=== PATIENT | female | born 1940 | race Caucasian/White ===

== ENCOUNTER 2020-07-18 17:28 | Inpatient (IN) | payer MEDICARE ==
--- NOTE | 2020-07-18 18:36 | ED ---
General Adult HPI - General Chief complaint: Weakness Stated complaint: high white blood count/Family wanted her eval Time Seen by Provider: 07/18/20 18:09 Source: patient Mode of arrival: wheelchair Limitations: no limitations - History of Present Illness Initial comments: Dictation was produced using Wote dictation software. please excuse any grammatical, word or spelling errors. This patient was cared for during a federal and state declared state of emergency secondary to Covid 19 Chief Complaint: 79-year-old female sent in from primary care physician's office for weakness. History of Present Illness: 79-year-old female she was seen at primary care physician's office for weakness. Patient's been weak for the last 3-4 days. 3 days ago she fell and suffered some bruising around her neck. She states that after the fall she did not have any headache. She has no neck pain or headache at this time. She did suffer some bruising around the left anterior neck. She's been weak and hasn't been able to get up out of bed to do her daily activities. They will to the primary care physician's office where blood tests was performed she did have a white count. They sent her here because patient was unable to provide a urine sample. Patient denies any numbness and paresthesias to the arms or legs. 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 she denies any worsening weakness of the left side. Patient takes Xarelto The ROS documented in this emergency department record has been reviewed and confirmed by me. Those systems with pertinent positive or negative responses have been documented in the HPI. All other systems are other negative and/or noncontributory. PHYSICAL EXAM: General Impression: Alert and oriented x3, not in acute distress HEENT: Normocephalic, ecchymoses and bruising to the left anterior neck, extra- ocular movements intact, pupils equal and reactive to light bilaterally, mucous membranes moist. Cardiovascular: Heart regular rate and rhythm Chest: Able to complete full sentences, no retractions, no tachypnea Abdomen: abdomen soft, non-tender, non-distended, no organomegaly Musculoskeletal: Pulses present and equal in all extremities, no peripheral edema Motor: no focal deficits noted Neurological: CN II-XII grossly intact, action to the left upper extremity, mild weakness and ataxia to the left lower extremity Skin: Intact with no visualized rashes Psych: Normal affect and mood ED course: 79 yo past medical history of left-sided weakness from a stroke suffered several years ago presents today with generalized weakness. She has no neurologic complaints. Vital signs upon arrival are within acceptable limits. Laboratory evaluation obtained. Leukocytosis 16.60 shows a 14.3. Rest CBC unremarkable. Metabolic panel shows creatinine of 2.69. There is no old labs for comparison. Patient given intravenous fluids. There is concern for acute kidney injury in the setting of likely dehydration. UA shows greater than 182 white blood cells per recurrent versus is negative. Computed tomography scan of the head and C-spine and chest was obtained to rule out any acute traumatic injuries. Computed tomography scan had C-spine shows no acute processes. C omputed tomography scan of the chest was obtained showing incidental findings of pulmonary nodules and adrenal nodule. Disposition0 discussed patient and her at bedside. Patient agreeable for admission. Case was discussed with Mariana Piper was went except patient's Behalf of [facility] prescription. - Related Data Allergies Allergy/AdvReac Type Severity Reaction Status Date / Time No Known Allergies Allergy Verified 07/18/20 18:07 Review of Systems ROS Statement: Those systems with pertinent positive or pertinent negative responses have been documented in the HPI. ROS Other: All systems not noted in ROS Statement are negative. Past Medical History Past Medical History: Atrial Fibrillation, CVA/TIA History of Any Multi-Drug Resistant Organisms: None Reported Past Surgical History: Hysterectomy Past Psychological History: No Psychological Hx Reported Smoking Status: Never smoker Past Alcohol Use History: None Reported Past Drug Use History: None Reported General Exam Limitations: no limitations Course Vital Signs 07/18/20 07/18/20 18:01 19:49 Temperature 98.2 F Pulse Rate 64 103 H Respiratory 16 18 Rate Blood Pressure 112/73 103/85 O2 Sat by Pulse 97 97 Oximetry Medical Decision Making - Lab Data Result diagrams: 07/18/20 19:22 07/18/20 19:38 Lab Results 07/18/20 07/18/20 07/18/20 Range/Units 19:22 19:22 19:22 WBC 16.6 H (3.8-10.6) k/uL RBC 4.14 (3.80-5.40) m/uL Hgb 12.1 (11.4-16.0) gm/dL Hct 36.3 (34.0-46.0) % MCV 87.6 (80.0-100.0) fL MCH 29.3 (25.0-35.0) pg MCHC 33.4 (31.0-37.0) g/dL RDW 13.8 (11.5-15.5) % Plt Count 209 (150-450) k/uL MPV 8.0 Neutrophils % 86 % Lymphocytes % 9 % Monocytes % 3 % Eosinophils % 0 % Basophils % 0 % Neutrophils # 14.3 H (1.3-7.7) k/uL Lymphocytes # 1.5 (1.0-4.8) k/uL Monocytes # 0.5 (0-1.0) k/uL Eosinophils # 0.0 (0-0.7) k/uL Basophils # 0.0 (0-0.2) k/uL Sodium (137-145) mmol/L Potassium (3.5-5.1) mmol/L Chloride (98-107) mmol/L Carbon Dioxide (22-30) mmol/L Anion Gap mmol/L BUN (7-17) mg/dL Creatinine (0.52-1.04) mg/dL Est GFR (CKD-EPI)AfAm (>60 ml/min/1.73 sqM) Est GFR (CKD-EPI)NonAf (>60 ml/min/1.73 sqM) Glucose (74-99) mg/dL Calcium (8.4-10.2) mg/dL Magnesium (1.6-2.3) mg/dL Urine Color Yellow Urine Appearance Turbid H (Clear) Urine pH 5.5 (5.0-8.0) Ur Specific [place] 1.017 (1.001-1.035) Urine Protein 2+ H (Negative) Urine Glucose (UA) Negative (Negative) Urine Ketones Negative (Negative) Urine Blood Small H (Negative) Urine Nitrite Negative (Negative) Urine Bilirubin Negative (Negative) Urine Urobilinogen <2.0 (<2.0) mg/dL Ur Leukocyte Esterase Large H (Negative) Urine RBC 9 H (0-5) /hpf Urine WBC >182 H (0-5) /hpf Urine WBC Clumps Many H (None) /hpf Ur Squamous Epith Cells 4 (0-4) /hpf Urine Bacteria Occasional H (None) /hpf Hyaline Casts 11 H (0-2) /lpf Urine Mucus Rare H (None) /hpf Coronavirus (PCR) Not Detected (Not Detectd) 07/18/20 Range/Units 19:38 WBC (3.8-10.6) k/uL RBC (3.80-5.40) m/uL Hgb (11.4-16.0) gm/dL Hct (34.0-46.0) % MCV (80.0-100.0) fL MCH (25.0-35.0) pg MCHC (31.0-37.0) g/dL RDW (11.5-15.5) % Plt Count (150-450) k/uL MPV Neutrophils % % Lymphocytes % % Monocytes % % Eosinophils % % Basophils % % Neutrophils # (1.3-7.7) k/uL Lymphocytes # (1.0-4.8) k/uL Monocytes # (0-1.0) k/uL Eosinophils # (0-0.7) k/uL Basophils # (0-0.2) k/uL Sodium 138 (137-145) mmol/L Potassium 3.5 (3.5-5.1) mmol/L Chloride 104 (98-107) mmol/L Carbon Dioxide 23 (22-30) mmol/L Anion Gap 11 mmol/L BUN 56 H (7-17) mg/dL Creatinine 2.69 H (0.52-1.04) mg/dL Est GFR (CKD-EPI)AfAm 19 (>60 ml/min/1.73 sqM) Est GFR (CKD-EPI)NonAf 16 (>60 ml/min/1.73 sqM) Glucose 150 H (74-99) mg/dL Calcium 9.0 (8.4-10.2) mg/dL Magnesium 2.1 (1.6-2.3) mg/dL Urine Color Urine Appearance (Clear) Urine pH (5.0-8.0) Ur Specific [place] (1.001-1.035) Urine Protein (Negative) Urine Glucose (UA) (Negative) Urine Ketones (Negative) Urine Blood (Negative) Urine Nitrite (Negative) Urine Bilirubin (Negative) Urine Urobilinogen (<2.0) mg/dL Ur Leukocyte Esterase (Negative) Urine RBC (0-5) /hpf Urine WBC (0-5) /hpf Urine WBC Clumps (None) /hpf Ur Squamous Epith Cells (0-4) /hpf Urine Bacteria (None) /hpf Hyaline Casts (0-2) /lpf Urine Mucus (None) /hpf Coronavirus (PCR) (Not Detectd) Disposition Clinical Impression: UTI (urinary tract infection), KRISTOPHER (acute kidney injury), Dehydration Disposition: ADMITTED IP TO THIS HOSP Condition: Fair Referrals: Vernon Negron MD [Primary Care Provider] - 1-2 days Decision Time: 21:06
[2020-07-18 19:57] LABS: Basophils % (A) 0 %; Eosinophils % (A) 0 %; HCT 36.3 % (34.0-46.0); HGB 12.1 gm/dL (11.4-16.0); Lymphocytes # (A) 1.5 k/uL (1.0-4.8); Lymphocytes % (A) 9 %; MCH 29.3 pg (25.0-35.0); MCHC 33.4 g/dL (31.0-37.0); MCV 87.6 fL (80.0-100.0); Monocytes # (A) 0.5 k/uL (0-1.0); Monocytes % (A) 3 %; Neutrophils # (A) 14.3 k/uL (1.3-7.7); Neutrophils % (A) 86 %; Platelet Count 209 k/uL (150-450); RBC 4.14 m/uL (3.80-5.40); RDW 13.8 % (11.5-15.5); WBC 16.6 k/uL (3.8-10.6)
[2020-07-18 19:58] LABS: Appearance,Urine Turbid (Clear); Bacteria,Urine Occasional /hpf; Bilirubin,Urine Negative (Negative); Blood,Urine Small (Negative); Color,Urine Yellow; Glucose,Urine (UA) Negative (Negative); Hyaline Casts,Urine 11 /lpf (0-2); Ketones,Urine Negative (Negative); Leukocyte Esterase,Urine Large (Negative); Mucus,Urine Rare /hpf; Nitrite,Urine Negative (Negative); PH, Urine 5.5 (5.0-8.0); Protein,Urine 2+ (Negative); RBC,Urine 9 /hpf (0-5); Specific Gravity,Urine 1.017 (1.001-1.035); Squamous Epithelial Cell,Urine 4 /hpf (0-4); Urobilinogen,Urine <2.0 mg/dL (<2.0); WBC,Urine >182 /hpf (0-5)
--- NOTE | 2020-07-18 20:24 | CT ---
EXAMINATION TYPE: CT brain marvaine wo con DATE OF EXAM: 07/18/2020 COMPARISON: None available. HISTORY: Fall x2 days ago and weakness. CT DLP: 1434.8 mGycm Automated exposure control for dose reduction was used. TECHNIQUE: CT scan of the head and cervical spine are performed without contrast. FINDINGS: There is no acute intracranial hemorrhage, mass effect, or midline shift identified. Ther e is old right MCA infarct with associated encephalomalacia and exvacuodilatation of the right latera l ventricle. No hydrocephalus. There is moderate white matter disease and parenchymal volume loss. T he globes are intact and the visualized sinuses are clear. Cervical spine is visualized in its entirety from C1 through upper thoracic levels and demonstrates s atisfactory alignment without evidence of acute fracture. There is moderate to severe C4-C7 spondylos is with degenerative minimal anterolisthesis of C4 on C5. Prevertebral soft tissue appears within no rmal limits. The C1-C2 articulation is unremarkable. IMPRESSION: 1. There is no acute fracture or dislocation evident in the cervical spine. 2. No acute intracranial hemorrhage, mass effect, or midline shift is seen. 3. Old right MCA territory infarct. 4. Moderate to severe cervical spondylosis. 5. Chronic microvascular ischemic changes.
[2020-07-18 20:33] LABS: Magnesium 2.1 mg/dL (1.6-2.3); Potassium 3.5 mmol/L (3.5-5.1)
--- NOTE | 2020-07-18 20:33 | CT ---
EXAMINATION TYPE: CT chest wo con DATE OF EXAM: 07/18/2020 COMPARISON: None available. HISTORY: Fall x2 days ago and weakness. CT DLP: 632 mGycm. Automated Exposure Control for Dose Reduction was Utilized. TECHNIQUE: CT scan of the thorax is performed without IV contrast. FINDINGS: LUNGS: There is mild bilateral hazy opacity, most compatible atelectasis. There are scattered few pul monary nodules, most notable in the right middle lobe, measuring up to 4 mm. No pleural effusion or p neumothorax. MEDIASTINUM: Lack of IV contrast is noted to limit evaluation for mediastinal and especially hilar ad enopathy. There are no definitive greater than 1 cm hilar or mediastinal lymph nodes. No cardiomega ly or pericardial effusion is seen. There is moderate to advanced thoracic aorta and coronary atheros clerotic disease. OTHER: There is a 2.7 x 1.6 cm right adrenal nodule. Partially imaged prominent left renal calculus v ersus atherosclerotic calcification. No significant hydronephrosis. No acute osseous abnormality. T12-L1 spondylosis with vacuum disc phenomenon. IMPRESSION: No acute cardiopulmonary abnormality. Nonspecific few right pulmonary nodules, may relate to prior inflammatory/infectious changes. Follow- up CT in 6 months to one year may be obtained in the absence of prior study for comparison. Incidental 2.7 cm right adrenal nodule, may relate to adenoma. Confirmation with dedicated CT protoco l may be obtained as clinically indicated. Partially imaged prominent left renal calculus versus atherosclerotic calcification. No hydronephrosi s.
[2020-07-18] MEDS ORDERED: cefTRIAXone IN SWFI 1,000 MG/10 ML SYRINGE IVP STA (20:37)
[2020-07-18] MEDS ORDERED: NALOXONE 0.4 MG/ML 1 ML VIAL IV PRN (21:01)
[2020-07-18] MEDS ORDERED: ONDANSETRON 4 MG/2 ML VIAL IVP PRN (21:01)
[2020-07-18] MEDS: SODIUM CHLORIDE 0.9% 1,000 ML IV SCH (21:39)
[2020-07-18] MEDS: INSULIN DETEMIR (LEVEMIR) 100 UNIT/ML SYR SQ SCH (22:15)
[2020-07-19 01:40] LABS: Glucose,Whole Blood 155 mg/dL (75-99)
[2020-07-19] MEDS: SODIUM CHLORIDE 0.9% 1,000 ML IV SCH ×2 (06:57→21:10)
[2020-07-19 08:40] LABS: Glucose,Whole Blood 121 mg/dL (75-99)
[2020-07-19] MEDS: INSULIN DETEMIR (LEVEMIR) 100 UNIT/ML SYR SQ SCH ×2 (08:45→21:08)
[2020-07-19 11:31] LABS: Glucose,Whole Blood 138 mg/dL (75-99)
[2020-07-19 11:32] LABS: Basophils % (A) 0 %; Eosinophils # (A) 0.1 k/uL (0-0.7); Eosinophils % (A) 1 %; HCT 33.9 % (34.0-46.0); HGB 11.7 gm/dL (11.4-16.0); Lymphocytes % (A) 9 %; MCH 30.3 pg (25.0-35.0); MCHC 34.6 g/dL (31.0-37.0); MCV 87.7 fL (80.0-100.0); Mean Platelet Volume 7.4; Monocytes # (A) 0.3 k/uL (0-1.0); Monocytes % (A) 3 %; Neutrophils # (A) 9.2 k/uL (1.3-7.7); Neutrophils % (A) 83 %; Platelet Count 202 k/uL (150-450); RBC 3.86 m/uL (3.80-5.40); RDW 13.4 % (11.5-15.5)
[2020-07-19] MEDS: POTASSIUM CHLORIDE ER 10 MEQ TAB.ER.PRT PO SCH (11:57)
[2020-07-19] MEDS: DILTIAZEM CD 240 MG CAP.ER.24H PO SCH (11:58)
[2020-07-19] MEDS: INSULIN ASPART (NovoLOG) 100 UNIT/ML VIAL SQ SCH ×3 (12:21→21:08)
[2020-07-19 17:16] LABS: Glucose,Whole Blood 106 mg/dL (75-99)
[2020-07-19 18:10] LABS: African American GFR (CKD) 21.5 (60.0-200.0); Anion Gap 11.8 mmol/L (4.00-12.00); BUN/Creat Ratio 24.17 Ratio (12.00-20.00); Calcium 8.5 mg/dL (8.7-10.3); Carbon Dioxide 23.2 mmol/L (21.6-31.8); Non-African American GFR(CKD) 18.6 (60.0-200.0)
[2020-07-19 19:50] LABS: Glucose,Whole Blood 210 mg/dL (75-99)
[2020-07-19] MEDS: RIVAROXABAN 15 MG TAB PO SCH (20:43)
[2020-07-19] MEDS: ATORVASTATIN 20 MG TAB PO SCH (20:43)
[2020-07-19] MEDS: SERTRALINE 50 MG TAB PO SCH (20:49)
--- NOTE | 2020-07-19 21:09 | P.HPIM ---
History of Present Illness H&P Date: 07/19/20 Chief Complaint: Generalized weakness Patient is a 79-year-old female with a known history of diabetes type 2 insulin- dependent, history of CVA/TIA with left-sided weakness, atrial fibrillation on anticoagulation with Xarelto presents to ER with complaints of generalized wea kness. Patient was seen at her PCPs office for weakness. Patient has been having generalized weakness for the past 3 to 4 days. 3 days ago she fell and suffered some bruise around her neck. Denied any neck pain or headache at this time. Patient says that she felt due to generalized weakness. No chest pain no dizziness or lightheadedness. Since then patient has not been getting out of bed and do her daily activities as before. Patient was seen by her primary care physician and found to have elevated WBC count and sent to hospital for evaluation of infection. Patient denies any dysuria or hematuria. Denied any fever or chills. No cough or sputum production. No other recent illnesses. CT head and cervical spine showed no acute fracture or dislocation evident in the cervical spine. No acute intracranial hemorrhage mass-effect or midline shift noted. Old right MCA territory infarct. Moderate to severe cervical spondylosis. Chronic microvascular ischemic changes. CT chest showed no acute cardiopulmonary abnormality. Nonspecific diffuse right pulmonary nodules may relate to prior inflammatory or infectious disease changes. Follow-up CT 6 months to 1 year may be obtained in the absence of prior study for comparison. Incidental 2.7 cm right adrenal nodule may relate to adenoma. Confirmation with dedicated CT protocol may be obtained as clinically indicated. Prominent left renal calculus versus atherosclerosis calcification. No hydronephrosis. WBC 16.6, hemoglobin 12.1 and platelets 209 BUN 56, creatinine 2.69 and potassium 3.5 sodium 138 Urinalysis showed turbid with large leukocyte esterase and greater than 182 WBCs COVID-19 PCR not detected. Patient was tachycardic and saturating well on room air. Review of Systems Constitutional: Patient denies any fever or chills . generalized weakness. no weight loss. Abdomen: Patient denied nausea vomiting and diarrhea and abdominal pain. Cardiovascular: Patient denies any chest pain or short of breath no palpitations. Respiratory: patient denied any cough or sputum production. No shortness of breath Neurologic: Patient denied any numbness or tingling headache. Musculoskeletal: Patient denies any complaints of joint swelling or deformity. Skin: Bruising over the neck Psychiatric: Negative Endocrine: No heat or cold intolerance. No recent weight gain. Genitourinary: No dysuria or hematuria. All other 14 point ROS negative except the above Past Medical History Past Medical History: Atrial Fibrillation, CVA/TIA, Diabetes Mellitus History of Any Multi-Drug Resistant Organisms: None Reported Past Surgical History: Hysterectomy Past Anesthesia/Blood Transfusion Reactions: No Reported Reaction Past Psychological History: No Psychological Hx Reported Smoking Status: Never smoker Past Alcohol Use History: None Reported Past Drug Use History: None Reported Medications and Allergies Home Medications Medication Instructions Recorded Confirmed Type Aspirin EC [Ecotrin Low Dose] 81 mg PO DAILY 07/18/20 07/18/20 History Atorvastatin [Lipitor] 20 mg PO DAILY@192907/18/20 07/18/20 History Cholecalciferol [Vitamin D3 (25 5,000 unit PO DAILY 07/18/20 07/18/20 History Mcg = 1000 Iu)] Diltiazem HCl [Cartia Xt] 240 mg PO DAILY 07/18/20 07/18/20 History Dulaglutide [Trulicity] 0.75 mg SQ MO 07/18/20 07/18/20 History Insulin Detemir [Levemir Flextouch] 40 units SQ BID 07/18/20 07/18/20 History Isosorbide Mononitrate ER [Imdur] 30 mg PO DAILY 07/18/20 07/18/20 History Krill/Om-3/Dha/Epa/Phospho/Ast 1 cap PO DAILY 07/18/20 07/18/20 History [Megared Dora-3 Krill 350 mg] Multivitamins, Thera [Multivitamin 1 tab PO DAILY 07/18/20 07/18/20 History (formulary)] Potassium Gluconate 99 mg PO DAILY 07/18/20 07/18/20 History Rivaroxaban [Xarelto] 15 mg PO DAILY@192907/18/20 07/18/20 History Sertraline [Zoloft] 50 mg PO DAILY@192907/18/20 07/18/20 History Allergies Allergy/AdvReac Type Severity Reaction Status Date / Time No Known Allergies Allergy Verified 07/18/20 21:13 Physical Exam Vitals: Vital Signs Temp Pulse Pulse Resp BP BP Pulse Ox 07/19/20 08:15 98.3 F 108 H 18 118/70 94 L 07/19/20 04:34 97.4 F L 98 18 137/83 95 07/18/20 22:35 99.2 F 102 H 16 111/76 95 07/18/20 21:47 98.2 F 103 H 18 103/85 97 07/18/20 19:49 103 H 18 103/85 97 07/18/20 18:01 98.2 F 64 16 112/73 97 Intake and Output 07/18/20 07/19/20 07/19/20 22:59 06:59 14:59 Other: Voiding Method Bedside Commode Bedside Commode Weight 90.718 kg 90.718 kg PHYSICAL EXAMINATION: Patient is lying in the bed comfortably, no acute distress, awake alert and oriented.. HEENT: Normocephalic. Neck is supple. Pupils reactive. Nostrils clear. Oral cavity is moist. Ears reveal no drainage. Neck reveals no JVD, carotid bruits, or thyromegaly. CHEST EXAMINATION: Trachea is central. Symmetrical expansion. Lung massey clear to auscultation and percussion. CARDIAC: Normal S1, S2 with no gallops. No murmurs ABDOMEN: Soft. Bowel sounds normal. No organomegaly. No abdominal bruits. Extremities: reveal no edema. No clubbing or cyanosis Neurologically awake, alert, oriented x2-3. Left-sided weakness. Skin: No rash or skin lesions. Patient does have bruising over the anterior neck. Psychiatric: Coperative. Nonsuicidal Musculoskeletal: No joint swelling or deformity. Normal range of motion. Results CBC & Chem 7: 07/19/20 11:03 07/19/20 11:03 Labs: Abnormal Lab Results - Last 24 Hours (Table) 07/18/20 07/18/20 07/18/20 Range/Units 19:22 19:22 19:38 WBC 16.6 H (3.8-10.6) k/uL Neutrophils # 14.3 H (1.3-7.7) k/uL BUN 56 H (7-17) mg/dL Creatinine 2.69 H (0.52-1.04) mg/dL Glucose 150 H (74-99) mg/dL POC Glucose (mg/dL) (75-99) mg/dL Urine Appearance Turbid H (Clear) Urine Protein 2+ H (Negative) Urine Blood Small H (Negative) Ur Leukocyte Esterase Large H (Negative) Urine RBC 9 H (0-5) /hpf Urine WBC >182 H (0-5) /hpf Urine WBC Clumps Many H (None) /hpf Urine Bacteria Occasional H (None) /hpf Hyaline Casts 11 H (0-2) /lpf Urine Mucus Rare H (None) /hpf 07/19/20 07/19/20 Range/Units 01:38 08:04 WBC (3.8-10.6) k/uL Neutrophils # (1.3-7.7) k/uL BUN (7-17) mg/dL Creatinine (0.52-1.04) mg/dL Glucose (74-99) mg/dL POC Glucose (mg/dL) 155 H 121 H (75-99) mg/dL Urine Appearance (Clear) Urine Protein (Negative) Urine Blood (Negative) Ur Leukocyte Esterase (Negative) Urine RBC (0-5) /hpf Urine WBC (0-5) /hpf Urine WBC Clumps (None) /hpf Urine Bacteria (None) /hpf Hyaline Casts (0-2) /lpf Urine Mucus (None) /hpf Thrombosis Risk Factor Assmnt - DVT/VTE Prophylaxis DVT/VTE Prophylaxis: Pharmacologic Prophylaxis ordered - Choose All That Apply Each Risk Factor Represents 3 Points: Age 75 years or older Thrombosis Risk Factor Assessment Total Risk Factor Score: 3 Thrombosis Risk Factor Assessment Level: Moderate Risk Assessment and Plan Assessment: Acute urinary tract infection Generalized weakness with recent history of fall. CT head and cervical spine negative. Acute kidney injury likely prerenal. Baseline creatinine not known. Hypertension Paroxysmal atrial fibrillation on anticoagulation with Xarelto Depression History of CVA with left-sided weakness Diabetes type 2 insulin-dependent Hypokalemia replaced. DVT prophylaxis patient is already on Xarelto Plan: Patient will be continued on antibiotics in the form of ceftriaxone and follow- up urine culture reports. Patient will be started back on Cardizem and Xarelto. Continue with IV hydration with normal saline and follow-up renal function. Insulin dosing at sliding scale for better blood sugar control. Encourage oral intake. PT OT will be consulted and further recommendations based on the clinical course. Time with Patient: Greater than 30
[2020-07-20 05:56] LABS: Basophils % (A) 0 %; Eosinophils # (A) 0.1 k/uL (0-0.7); Eosinophils % (A) 1 %; HCT 34.9 % (34.0-46.0); Lymphocytes # (A) 1.1 k/uL (1.0-4.8); Lymphocytes % (A) 12 %; MCH 30.1 pg (25.0-35.0); MCHC 34.3 g/dL (31.0-37.0); MCV 87.9 fL (80.0-100.0); Mean Platelet Volume 7.2; Monocytes # (A) 0.4 k/uL (0-1.0); Monocytes % (A) 4 %; Neutrophils # (A) 7.5 k/uL (1.3-7.7); Neutrophils % (A) 80 %; Platelet Count 219 k/uL (150-450); RBC 3.97 m/uL (3.80-5.40); RDW 13.6 % (11.5-15.5); WBC 9.3 k/uL (3.8-10.6)
[2020-07-20 07:19] LABS: Glucose,Whole Blood 56 mg/dL (75-99)
[2020-07-20 07:39] LABS: Glucose,Whole Blood 59 mg/dL (75-99)
[2020-07-20 07:43] VITALS: RESP 16
[2020-07-20] MEDS: INSULIN DETEMIR (LEVEMIR) 100 UNIT/ML SYR SQ SCH ×2 (07:44→21:47)
[2020-07-20] MEDS: INSULIN ASPART (NovoLOG) 100 UNIT/ML VIAL SQ SCH ×4 (07:44→21:47)
[2020-07-20 08:05] LABS: Glucose,Whole Blood 117 mg/dL (75-99)
[2020-07-20] MEDS: ASPIRIN 81 MG PO SCH (08:18)
[2020-07-20] MEDS: MULTIVITAMINS, THERA 1 EACH TAB PO SCH (08:18)
[2020-07-20] MEDS: ISOSORBIDE MONONITRATE ER 30 MG TAB.ER.24H PO SCH (08:18)
[2020-07-20] MEDS: POTASSIUM CHLORIDE ER 10 MEQ TAB.ER.PRT PO SCH (08:18)
[2020-07-20] MEDS: CHOLECALCIFEROL 1,000 UNIT TAB PO SCH (08:18)
[2020-07-20] MEDS: DILTIAZEM CD 240 MG CAP.ER.24H PO SCH (08:20)
[2020-07-20 10:00] LABS: African American GFR (CKD) 30.5 (60.0-200.0); Anion Gap 10.1 mmol/L (4.00-12.00); BUN/Creat Ratio 24.44 Ratio (12.00-20.00); Calcium 8.6 mg/dL (8.7-10.3); Carbon Dioxide 23.9 mmol/L (21.6-31.8); Non-African American GFR(CKD) 26.3 (60.0-200.0); Potassium 2.8 mmol/L (3.5-5.5)
[2020-07-20] MEDS ORDERED: Potassium Replacement Protocol 1 EACH MISC MISCELLANE PRN (10:42)
[2020-07-20] MEDS: POTASSIUM CHLORIDE ER 20 MEQ TAB.ER PO SCH ×3 (11:16→14:12)
[2020-07-20 11:52] LABS: Glucose,Whole Blood 137 mg/dL (75-99)
[2020-07-20] MEDS: SODIUM CHLORIDE 0.9% 1,000 ML IV SCH (12:00)
[2020-07-20] MEDS: SODIUM CHLORIDE 0.45% 1,000 ML IV SCH (12:52)
[2020-07-20 13:46] LABS: Hemoglobin A1C 7.1 % (4.0-6.0)
[2020-07-20 17:38] LABS: Glucose,Whole Blood 161 mg/dL (75-99)
[2020-07-20] MEDS: ATORVASTATIN 20 MG TAB PO SCH (20:49)
[2020-07-20] MEDS: RIVAROXABAN 15 MG TAB PO SCH (20:49)
[2020-07-20] MEDS: SERTRALINE 50 MG TAB PO SCH (20:49)
[2020-07-20 21:04] LABS: Glucose,Whole Blood 217 mg/dL (75-99)
--- NOTE | 2020-07-21 00:44 | P.PN ---
Subjective Progress Note Date: 07/20/20 Principal diagnosis: Acute urinary tract infection Patient is a 79-year-old female with a known history of diabetes type 2 insulin- dependent, history of CVA/TIA with left-sided weakness, atrial fibrillation on anticoagulation with Xarelto presents to ER with complaints of generalized weakness. Patient was seen at her PCPs office for weakness. Patient has been having generalized weakness for the past 3 to 4 days. 3 days ago she fell and suffered some bruise around her neck. Denied any neck pain or headache at this time. Patient says that she felt due to generalized weakness. No chest pain no dizziness or lightheadedness. Since then patient has not been getting out of bed and do her daily activities as before. Patient was seen by her primary care physician and found to have elevated WBC count and sent to hospital for evaluation of infection. Patient denies any dysuria or hematuria. Denied any fever or chills. No cough or sputum production. No other recent i llnesses. CT head and cervical spine showed no acute fracture or dislocation evident in the cervical spine. No acute intracranial hemorrhage mass-effect or midline shift noted. Old right MCA territory infarct. Moderate to severe cervical spondylosis. Chronic microvascular ischemic changes. CT chest showed no acute cardiopulmonary abnormality. Nonspecific diffuse right pulmonary nodules may relate to prior inflammatory or infectious disease changes. Follow-up CT 6 months to 1 year may be obtained in the absence of prior study for comparison. Incidental 2.7 cm right adrenal nodule may relate to adenoma. Confirmation with dedicated CT protocol may be obtained as clinically indicated. Prominent left renal calculus versus atherosclerosis calcification. No hydronephrosis. WBC 16.6, hemoglobin 12.1 and platelets 209 BUN 56, creatinine 2.69 and potassium 3.5 sodium 138 Urinalysis showed turbid with large leukocyte esterase and greater than 182 WBCs COVID-19 PCR not detected. Patient was tachycardic and saturating well on room air. 07/20/2020 Patient is currently lying in the bed comfortably. Awake alert and oriented. No complaints of chest pain or shortness breath. Otherwise patient has generalized weakness and PT OT was consulted. Continued on antibiotics in the form of ceftriaxone and cultures showed no growth so far. Laboratory data reviewed sodium 146 and potassium 2.8 and chloride 112 BUN 44 and creatinine improved to 1.8 A1c 7.1 Current medications reviewed. Patient may need rehab transfer. IV fluids changed to half-normal saline. Follow-up CBC and BMP tomorrow. Objective - Vital Signs Vital signs: Vital Signs Temp 97.9 F 07/20/20 15:00 Pulse 72 07/20/20 15:00 Resp 16 07/20/20 15:57 BP 148/95 07/20/20 15:00 Pulse Ox 96 07/20/20 15:00 Intake & Output 07/19/20 07/20/20 07/20/20 18:59 06:59 18:59 Intake Total 700 Output Total 900 Balance 700 -900 Intake: Oral 700 Output: Urine 900 Other: Voiding Method Bedside Commode Bedside Commode # Voids 3 - Exam PHYSICAL EXAMINATION: Patient is lying in the bed comfortably, no acute distress, awake alert and oriented.. HEENT: Normocephalic. Neck is supple. Pupils reactive. Nostrils clear. Oral cavity is moist. Ears reveal no drainage. Neck reveals no JVD, carotid bruits, or thyromegaly. CHEST EXAMINATION: Trachea is central. Symmetrical expansion. Lung massey clear to auscultation and percussion. CARDIAC: Normal S1, S2 with no gallops. No murmurs ABDOMEN: Soft. Bowel sounds normal. No organomegaly. No abdominal bruits. Extremities: reveal no edema. No clubbing or cyanosis Neurologically awake, alert, oriented x2-3. Left-sided weakness. Skin: No rash or skin lesions. Patient does have bruising over the anterior neck. Psychiatric: Coperative. Nonsuicidal Musculoskeletal: No joint swelling or deformity. Normal range of motion. - Labs CBC & Chem 7: 07/20/20 05:31 07/20/20 18:32 Labs: Abnormal Lab Results - Last 24 Hours (Table) 07/19/20 07/19/20 07/19/20 Range/Units 11:03 17:09 19:48 Sodium (135-145) mmol/L Potassium 3.0 L (3.5-5.5) mmol/L Chloride (96-109) mmol/L BUN 58.0 H (9.0-27.0) mg/dL Creatinine 2.4 H (0.6-1.5) mg/dL Est GFR (CKD-EPI)AfAm 21.5 L (60.0-200.0) Est GFR (CKD-EPI)NonAf 18.6 L (60.0-200.0) BUN/Creatinine Ratio 24.17 H (12.00-20.00) Ratio Glucose 146 H (70-110) mg/dL POC Glucose (mg/dL) 106 H 210 H (75-99) mg/dL Hemoglobin A1c (4.0-6.0) % Calcium 8.5 L (8.7-10.3) mg/dL 07/20/20 07/20/20 07/20/20 Range/Units 05:31 05:31 07:16 Sodium 146 H (135-145) mmol/L Potassium 2.8 L (3.5-5.5) mmol/L Chloride 112 H (96-109) mmol/L BUN 44.0 H (9.0-27.0) mg/dL Creatinine 1.8 H (0.6-1.5) mg/dL Est GFR (CKD-EPI)AfAm 30.5 L (60.0-200.0) Est GFR (CKD-EPI)NonAf 26.3 L (60.0-200.0) BUN/Creatinine Ratio 24.44 H (12.00-20.00) Ratio Glucose 55 L (70-110) mg/dL POC Glucose (mg/dL) 56 L (75-99) mg/dL Hemoglobin A1c 7.1 H (4.0-6.0) % Calcium 8.6 L (8.7-10.3) mg/dL 07/20/20 07/20/20 07/20/20 Range/Units 07:37 08:04 11:51 Sodium (135-145) mmol/L Potassium (3.5-5.5) mmol/L Chloride (96-109) mmol/L BUN (9.0-27.0) mg/dL Creatinine (0.6-1.5) mg/dL Est GFR (CKD-EPI)AfAm (60.0-200.0) Est GFR (CKD-EPI)NonAf (60.0-200.0) BUN/Creatinine Ratio (12.00-20.00) Ratio Glucose (70-110) mg/dL POC Glucose (mg/dL) 59 L 117 H 137 H (75-99) mg/dL Hemoglobin A1c (4.0-6.0) % Calcium (8.7-10.3) mg/dL Microbiology - Last 24 Hours (Table) 07/18/20 19:38 Blood Culture - Preliminary Blood No Growth after 24 hours Assessment and Plan Assessment: Acute urinary tract infection Generalized weakness with recent history of fall. CT head and cervical spine negative. Acute kidney injury likely prerenal. Baseline creatinine not known. Severe Hypokalemia Hypertension Paroxysmal atrial fibrillation on anticoagulation with Xarelto Depression History of CVA with left-sided weakness Diabetes type 2 insulin-dependent Hypokalemia replaced. DVT prophylaxis patient is already on Xarelto Plan: Patient will be continued on antibiotics in the form of ceftriaxone and follow- up urine culture reports. Patient was started back on Cardizem and Xarelto. Continue with IV hydration with normal saline and follow-up renal function. Insulin dosing at sliding scale for better blood sugar control. Encourage oral intake. PT OT will be consulted and further recommendations based on the clinical course. Time with Patient: Greater than 30
[2020-07-21 01:57] LABS: Appearance,Urine Cloudy (Clear); Bilirubin,Urine Negative (Negative); Blood,Urine Negative (Negative); Color,Urine Yellow; Glucose,Urine (UA) Negative (Negative); Hyaline Casts,Urine 1 /lpf (0-2); Ketones,Urine Negative (Negative); Leukocyte Esterase,Urine Small (Negative); Mucus,Urine Rare /hpf; Nitrite,Urine Negative (Negative); PH, Urine 5.5 (5.0-8.0); Protein,Urine 1+ (Negative); RBC,Urine 1 /hpf (0-5); Specific Gravity,Urine 1.013 (1.001-1.035); Squamous Epithelial Cell,Urine 1 /hpf (0-4); Urobilinogen,Urine <2.0 mg/dL (<2.0); WBC,Urine 26 /hpf (0-5)
[2020-07-21 04:51] LABS: Glucose,Whole Blood 186 mg/dL (75-99)
[2020-07-21] MEDS: SODIUM CHLORIDE 0.45% 1,000 ML IV SCH (04:52)
[2020-07-21 06:00] VITALS: BP 166/77; PULSE 98; TEMP 97.7
[2020-07-21 07:01] LABS: Glucose,Whole Blood 139 mg/dL (75-99)
[2020-07-21] MEDS: MULTIVITAMINS, THERA 1 EACH TAB PO SCH (07:58)
[2020-07-21] MEDS: ISOSORBIDE MONONITRATE ER 30 MG TAB.ER.24H PO SCH (07:58)
[2020-07-21] MEDS: INSULIN ASPART (NovoLOG) 100 UNIT/ML VIAL SQ SCH ×2 (07:59→11:48)
[2020-07-21] MEDS: ASPIRIN 81 MG PO SCH (07:59)
[2020-07-21] MEDS: POTASSIUM CHLORIDE ER 10 MEQ TAB.ER.PRT PO SCH (07:59)
[2020-07-21] MEDS: INSULIN DETEMIR (LEVEMIR) 100 UNIT/ML SYR SQ SCH (07:59)
[2020-07-21] MEDS: DILTIAZEM CD 240 MG CAP.ER.24H PO SCH (07:59)
[2020-07-21] MEDS: CHOLECALCIFEROL 1,000 UNIT TAB PO SCH (07:59)
[2020-07-21 08:06] LABS: Basophils # (A) 0.1 k/uL (0-0.2); Basophils % (A) 1 %; Eosinophils # (A) 0.2 k/uL (0-0.7); Eosinophils % (A) 3 %; HCT 30.5 % (34.0-46.0); HGB 10.4 gm/dL (11.4-16.0); Lymphocytes # (A) 1.1 k/uL (1.0-4.8); Lymphocytes % (A) 13 %; MCHC 34.1 g/dL (31.0-37.0); MCV 88.1 fL (80.0-100.0); Mean Platelet Volume 6.9; Monocytes # (A) 0.3 k/uL (0-1.0); Monocytes % (A) 4 %; Neutrophils # (A) 6.5 k/uL (1.3-7.7); Neutrophils % (A) 77 %; Platelet Count 240 k/uL (150-450); RBC 3.46 m/uL (3.80-5.40); RDW 13.6 % (11.5-15.5); WBC 8.4 k/uL (3.8-10.6)
[2020-07-21 11:44] LABS: Glucose,Whole Blood 147 mg/dL (75-99)
[2020-07-21 12:09] LABS: African American GFR (CKD) 32.7 (60.0-200.0); Anion Gap 10.3 mmol/L (4.00-12.00); BUN/Creat Ratio 18.82 Ratio (12.00-20.00); Calcium 8.5 mg/dL (8.7-10.3); Carbon Dioxide 22.7 mmol/L (21.6-31.8); Non-African American GFR(CKD) 28.2 (60.0-200.0); Potassium 4.1 mmol/L (3.5-5.5)
--- NOTE | 2020-07-22 00:41 | P.DS ---
Providers Date of admission: 07/21/20 09:17 Attending physician: Maxine Priest Primary care physician: Vernon Negron [facility] Course: Date of service 07/21/2020 diagnoses: Acute urinary tract infection, improving, upon discharge patient is asymptomatic Generalized weakness with recent history of fall. CT head and cervical spine negative. Patient refused JUAREZ but she feels better Acute kidney injury likely prerenal. Improved upon discharge incidental finding of diffuse pulmonary nodules about 4 mm with recommendation for outpatient follow-up in 6 months Right adrenal adenoma, incidental finding. Recommendation follow up as an outpatient Severe Hypokalemia. Potassium is normal over 2 days on discharge Hypertension Paroxysmal atrial fibrillation on anticoagulation with Xarelto Depression History of CVA with left-sided weakness Diabetes type 2 insulin-dependent Hypokalemia replaced. Hospital course: Patient is a 79-year-old female with a known history of diabetes type 2 insulin- dependent, history of CVA/TIA with left-sided weakness, atrial fibrillation on anticoagulation with Xarelto presents to ER with complaints of generalized weakness. Patient was seen at her PCPs office for weakness. Patient has been having generalized weakness for the past 3 to 4 days. 3 days ago she fell and suffered some bruise around her neck. UA was suspicious for infection and patient was treated with ceftriaxone as well as normal saline and she showed interval improvement and on the day of discharge she denies any urinary symptoms, no dysuria, no change in frequency or urgency and she states her voiding habit is normal today. She denies abdominal pain or fever. No other symptoms and she agrees to go home today. Repeat urine analysis showed improvement but not complete resolution. Patient is discharged on Ceftin for 7 more days. As part of her workup for fall and she had CT of the thorax on admission which shows incidental finding of diffuse pulmonary nodules about 4 mm and right adrenal adenoma with recommendation for follow-up in 6 months as per radiologist also found right adrenal adenoma of 2.7 cm. Patient and her for informed with these findings. Also call with her PCP Vernon Borges on [phone]. I discussed the case with him including the finding of pulmonary nodule and right adrenal adenoma with recommendation for further workup as an outpatient and he kindly took note of these recommendations. He told me he is going to call the patient for appointment within 1 week, patient and both informed and agreed. Also I called the Mr. Norman Valdes upon patient request and updated him with patient condition and findings included the pulmonary nodules and adrenal adenoma and her diagnosis of UTI with recommendation for follow-up as an outpatient. Risks including but not limited to cancer are explained to both patient and and they verbalized understanding and acceptance Her creatinine was elevated upon admission to 2.6, it was improved with IV hydration over 4 days down to 1.7 upon discharge Physical therapy evaluated the patient and recommended subacute rehab, patient declined, risks of recurrent falls, bleeding as she is on Xarelto are explained for the patient however she was adamant to go home with home health care Problems and management plan were discussed with the patient and he verbalized understanding and acceptance Patient was found stable and can be discharged home however he needs follow-up as an outpatient. Patient was instructed to follow up with PCP Dr. negron within one week and patient agrees Gen: patient is a AAOx3, no distress CVS: S1-S2, RRR, no murmur Lungs: B/L CTA, no wheezing Abdomen: soft, no distention, no tenderness, positive bowel sounds Extremity: no leg edema or induration Time spent more than 35 minutes Patient Condition at Discharge: Fair Plan - Discharge Summary Discharge Rx Participant: No New Discharge Prescriptions: New Cefuroxime Axetil [Ceftin] 500 mg PO BID 7 Days #14 tab Continue Insulin Detemir [Levemir Flextouch] 40 units SQ BID Potassium Gluconate 99 mg PO DAILY Multivitamins, Thera [Multivitamin (formulary)] 1 tab PO DAILY Krill/Om-3/Dha/Epa/Phospho/Ast [Megared [place]-3 Krill 350 mg] 1 cap PO DAILY Cholecalciferol [Vitamin D3 (25 Mcg = 1000 Iu)] 5,000 unit PO DAILY Isosorbide Mononitrate ER [Imdur] 30 mg PO DAILY Aspirin EC [Ecotrin Low Dose] 81 mg PO DAILY Diltiazem HCl [Cartia Xt] 240 mg PO DAILY Sertraline [Zoloft] 50 mg PO DAILY@1929 Rivaroxaban [Xarelto] 15 mg PO DAILY@1929 Atorvastatin [Lipitor] 20 mg PO DAILY@1929 Dulaglutide [Trulicity] 0.75 mg SQ MO Discharge Medication List Aspirin EC [Ecotrin Low Dose] 81 mg PO DAILY 07/18/20 [History] Atorvastatin [Lipitor] 20 mg PO DAILY@192907/18/20 [History] Cholecalciferol [Vitamin D3 (25 Mcg = 1000 Iu)] 5,000 unit PO DAILY 07/18/20 [History] Diltiazem HCl [Cartia Xt] 240 mg PO DAILY 07/18/20 [History] Dulaglutide [Trulicity] 0.75 mg SQ MO 07/18/20 [History] Insulin Detemir [Levemir Flextouch] 40 units SQ BID 07/18/20 [History] Isosorbide Mononitrate ER [Imdur] 30 mg PO DAILY 07/18/20 [History] Krill/Om-3/Dha/Epa/Phospho/Ast [Megared [place]-3 Krill 350 mg] 1 cap PO DAILY 07/18/20 [History] Multivitamins, Thera [Multivitamin (formulary)] 1 tab PO DAILY 07/18/20 [Hi story] Potassium Gluconate 99 mg PO DAILY 07/18/20 [History] Rivaroxaban [Xarelto] 15 mg PO DAILY@192907/18/20 [History] Sertraline [Zoloft] 50 mg PO DAILY@192907/18/20 [History] Cefuroxime Axetil [Ceftin] 500 mg PO BID 7 Days #14 tab 07/21/20 [Rx] Follow up Appointment(s)/Referral(s): Vernon Negron MD [Primary Care Provider] - 1-2 days [facility], [NON-STAFF] - 1-2 Days Patient Instructions/Handouts: Urinary Tract Infection in Women (DC) Discharge Disposition: HOME WITH HOME HEALTH SERVICES
== END 2020-07-21 15:21 | disposition home health service (06) | DRG 690 ==
LOC: EC 17:28 → 5NMEDONC 21:01 → OBSVTOIN 07-21 09:17
PROVIDERS: ADMIT Hospitalist; ATTEND Hospitalist
DX: N39.0 Urinary tract infection, site not specified (principal); I69.354 Hemiplegia and hemiparesis following cerebral infarction affecting left non-dominant side; N17.9 Acute kidney failure, unspecified; I48.0 Paroxysmal atrial fibrillation; S10.93XA Contusion of unspecified part of neck, initial encounter; W18.30XA Fall on same level, unspecified, initial encounter; Z91.81 History of falling; D35.00 Benign neoplasm of unspecified adrenal gland; R91.1 Solitary pulmonary nodule; E11.9 Type 2 diabetes mellitus without complications; E86.0 Dehydration; E87.6 Hypokalemia; F32.9 Major depressive disorder, single episode, unspecified; I10 Essential (primary) hypertension; M47.812 Spondylosis without myelopathy or radiculopathy, cervical region; Z79.01 Long term (current) use of anticoagulants; Z79.4 Long term (current) use of insulin; Z79.82 Long term (current) use of aspirin; Z79.899 Other long term (current) drug therapy; Z90.710 Acquired absence of both cervix and uterus; Z20.828 Contact with and (suspected) exposure to other viral communicable diseases
CPT/HCPCS: 36415; 70450; 71250; 72125; 80048; 81001; 82533; 83036; 83735; 84132; 85025; 87040; 87635; 96374; 99285

== ENCOUNTER → 2022-02-05 | Outpatient (CLI) | payer MEDICARE ==
--- NOTE | 2022-02-05 16:10 | US ---
EXAMINATION TYPE: US kidneys/renal and bladder DATE OF EXAM: 02/05/2022 COMPARISON: NONE CLINICAL HISTORY: N17.9 ACUTE KIDNEY FAILURE, UNSPECIFIED. EXAM MEASUREMENTS: Right Kidney: 9.6 x 4.5 x 4.4 cm Left Kidney: 10.1 x 3.2 x 4.5 cm Post Void Residual Volume: 153 mL Patient of large body habitus with very limited mobility, unable to move on the bed for examiner. Pat ient suffers from SOB, unable to hold her breath. Right Kidney: Very limited visualization shows multiple cysts largest 2 measuring 1.6 x 1.5 x 1.5cm and 1.5 x 1.1 x 1.1cm Left Kidney: Small cyst of the left kidney is estimated at 1.4 x 1.1 x 1.2 cm. Bladder: wnl Normal Post Void Residual: no, however patient was unable to empty her bladder at time of the exam IMPRESSION: Bilateral renal cysts.
[2022-02-06 00:34] LABS: Hepatitis A Antibody IgM Nonreactive (Nonreactive)
[2022-02-06 00:36] LABS: African American GFR (CKD) 16.9 (60.0-200.0); Albumin 3.7 g/dL (3.8-4.9); Albumin/Globulin Ratio 1.57 (1.60-3.17); Anion Gap 14.3 mmol/L (10.00-18.00); BUN/Creat Ratio 11.79 Ratio (12.00-20.00); Blood Urea Nitrogen 34.2 mg/dL (9.0-27.0); Calcium 9.2 mg/dL (8.7-10.3); Carbon Dioxide 20.5 mmol/L (20.0-27.5); Globulin 2.4 g/dL (1.6-3.3); Non-African American GFR(CKD) 14.6 (60.0-200.0); Potassium 3.2 mmol/L (3.5-5.5); Total Bilirubin 0.2 mg/dL (0.30-1.20); Total Protein 6.1 g/dL (6.2-8.2)
[2022-02-06 00:55] LABS: Hepatitis B Core IgM Nonreactive (Nonreactive); Hepatitis C IgG Antibody Nonreactive (Nonreactive)
[2022-02-06 01:37] LABS: Anti-DNA, DS unit <1.0 IU/mL; DNA Double-Stranded NEGATIVE (NEGATIVE)
[2022-02-06 03:27] LABS: Hepatitis B Surface Antigen Nonreactive (Nonreactive)
[2022-02-07 08:44] LABS: Free Kappa Lt Chain Qnt, Serum 9.85 mg/dL (0.33-1.94); Free Lambda Lt Chain Qnt, Seru 5.63 mg/dL (0.57-2.63)
== END | disposition home or self-care (01) ==
LOC: RADUSWWP 14:45
PROVIDERS: ATTEND Internal Medicine
DX: N28.1 Cyst of kidney, acquired (principal); N17.9 Acute kidney failure, unspecified
CPT/HCPCS: 76770; 80053; 80074; 83516; 83883; 86038; 86160; 86162; 86225; 86255; 86334